=== PATIENT | female | born 1985 | race Two or more races ===

== ENCOUNTER 2017-12-03 08:45 | Emergency (ER) | payer SELFPAY ==
[~2017-12-03] VITALS: Ht 154.9 cm; Wt 52.2 kg
[2017-12-03 10:09] LABS: Basophils # (auto) 0.1 uL; Basophils % (auto) 0.6 % (0.0-2.0); Eosinophils # (auto) 0.1 uL; Eosinophils % (auto) 0.6 % (0.0-7.0); Hematocrit 40.6 % (36.0-46.0); Hemoglobin 13.6 g/dL (12.2-16.2); Lymphocytes # (auto) 1.9 uL; Lymphocytes % (auto) 17.7 % (10.0-50.0); Mean Corpuscular Hemoglobin 28.5 pg (28.0-32.0); Mean Corpuscular Hgb Conc. 33.4 g/dL (32.0-36.0); Mean Corpuscular Volume 85.1 fL (80.0-100.0); Monocytes # (auto) 0.6 uL; Monocytes % (auto) 5.5 % (0.0-12.0); Neutrophils # (auto) 8.2 uL; Neutrophils % (auto) 75.6 % (37.0-80.0); Nucleated Red Blood Cells % 0.1 %; Platelet Count (auto) 290 10^3/uL (140-450); Red Blood Cells 4.77 10^6/uL (4.0-5.20); Red Cell Distribution Width 14.3 % (11.8-14.3); White Blood Cell 10.8 10^3/uL (4.4-10.8)
[2017-12-03 10:15] LABS: Urine Bacteria FEW /hpf (None Seen); Urine Blood Negative /uL (Negative); Urine Mucus FEW (None Seen); Urine Specific Gravity 1.009 (1.001-1.035); Urine WBC 1 /hpf (0 - 5)
[2017-12-03 10:35] LABS: Albumin 3.6 g/dL (3.4-5.0); BUN/Creatinine Ratio 18.2; Bilirubin, Total 0.6 mg/dL (0.2-1.0); Calcium 8.5 mg/dL (8.5-10.1); Potassium 3.6 mmol/L (3.5-5.1); Total Protein 7.3 g/dL (6.4-8.2)
[2017-12-03 11:46] VITALS: BP 103/63
== END 2017-12-03 12:46 | disposition home or self-care (01) ==
LOC: EDSEX 08:45 → ER 08:45
DX: O21.9 Vomiting of pregnancy, unspecified (principal); R10.9 Unspecified abdominal pain; Z3A.01 Less than 8 weeks gestation of pregnancy
CPT/HCPCS: 36415; 80053; 81001; 84702; 85025

== ENCOUNTER 2017-12-10 07:36 | Emergency (ER) | payer MEDICAID, OTHER ==
[~2017-12-10] VITALS: Ht 154.9 cm; Wt 54.4 kg
[2017-12-10 07:40] VITALS: BP 113/72
[2017-12-10 08:33] LABS: Urine WBC None Seen /hpf (0 - 5)
[2017-12-10 08:39] LABS: Basophils # (auto) 0.1 uL; Basophils % (auto) 0.6 % (0.0-2.0); Eosinophils # (auto) 0 uL; Eosinophils % (auto) 0.3 % (0.0-7.0); Hematocrit 41.5 % (36.0-46.0); Hemoglobin 13.8 g/dL (12.2-16.2); Lymphocytes # (auto) 2.2 uL; Lymphocytes % (auto) 19.3 % (10.0-50.0); Mean Corpuscular Hemoglobin 28.2 pg (28.0-32.0); Mean Corpuscular Hgb Conc. 33.2 g/dL (32.0-36.0); Mean Corpuscular Volume 84.9 fL (80.0-100.0); Monocytes # (auto) 0.6 uL; Monocytes % (auto) 5.5 % (0.0-12.0); Neutrophils # (auto) 8.6 uL; Neutrophils % (auto) 74.3 % (37.0-80.0); Nucleated Red Blood Cells % 0.1 %; Platelet Count (auto) 295 10^3/uL (140-450); Red Blood Cells 4.89 10^6/uL (4.0-5.20); Red Cell Distribution Width 14.2 % (11.8-14.3); White Blood Cell 11.5 10^3/uL (4.4-10.8)
[2017-12-10 08:53] LABS: Urine Amorphous Crystal FEW /hpf (None Seen); Urine Bacteria NONE SEEN /hpf (None Seen); Urine Blood Negative /uL (Negative); Urine Mucus FEW (None Seen); Urine Specific Gravity 1.015 (1.001-1.035)
[2017-12-10 09:07] LABS: Albumin 3.5 g/dL (3.4-5.0); BUN/Creatinine Ratio 15.6; Bilirubin, Total 0.4 mg/dL (0.2-1.0); Calcium 8.9 mg/dL (8.5-10.1); Potassium 3.8 mmol/L (3.5-5.1); Total Protein 7.3 g/dL (6.4-8.2)
== END 2017-12-10 10:35 | disposition home or self-care (01) ==
LOC: ER 07:36
DX: O21.9 Vomiting of pregnancy, unspecified (principal); Z76.0 Encounter for issue of repeat prescription; Z3A.01 Less than 8 weeks gestation of pregnancy
CPT/HCPCS: 36415; 80053; 81001; 84702; 85025

== ENCOUNTER 2018-07-14 09:05 | Observation (INO) | payer MEDICAID, OTHER | END 2018-07-14 10:40 | disposition home or self-care (01) | DRG 781 | LOC: LDRP 09:05 | PROVIDERS: ADMIT Obstetrics & Gynecology; ATTEND Obstetrics & Gynecology | DX: O26.893 Other specified pregnancy related conditions, third trimester (principal); R10.9 Unspecified abdominal pain; O99.89 Other specified diseases and conditions complicating pregnancy, childbirth and the puerperium; M54.9 Dorsalgia, unspecified; Z3A.37 37 weeks gestation of pregnancy | CPT/HCPCS: 59025; 81002; G0378 ==

== ENCOUNTER 2018-07-21 17:30 | Observation (INO) | payer OTHER | END 2018-07-21 19:00 | disposition home or self-care (01) | DRG 833 | LOC: LDRP 17:30 | PROVIDERS: ADMIT Specialist; ATTEND Specialist | DX: O62.9 Abnormality of forces of labor, unspecified (principal); Z3A.39 39 weeks gestation of pregnancy | CPT/HCPCS: 59025; 81002; G0378 ==

== ENCOUNTER 2018-07-22 04:59 | Observation (INO) | payer OTHER ==
[~2018-07-22] VITALS: Ht 160 cm; Wt 72.6 kg
[2018-07-22] MEDS ORDERED: hydrOXYzine HCL 25 MG/ML VL IM ONE ×2 (05:45)
[2018-07-23] MEDS ORDERED: DOCU-94 PO (05:15)
[2018-07-23] MEDS ORDERED: DOXY10TA OR (05:15)
[2018-07-23] MEDS ORDERED: PREN-96 PO (05:15)
== END 2018-07-22 07:00 | disposition home or self-care (01) | DRG 833 ==
LOC: LDRP 04:59
PROVIDERS: ADMIT Specialist; ATTEND Specialist
DX: O62.9 Abnormality of forces of labor, unspecified (principal); Z3A.38 38 weeks gestation of pregnancy
CPT/HCPCS: 59025; 81002; 96372; G0378; J3410

== ENCOUNTER 2018-07-23 03:50 | Inpatient (IN) | payer OTHER ==
[~2018-07-23] VITALS: Ht 154.9 cm; Wt 69.4 kg
[2018-07-23] MEDS ORDERED: LACT. RINGERS/OXYTOCIN 20UNITS 1,000 ML IV SCH ×2 (04:11→09:20)
[2018-07-23] MEDS: LACTATED RINGER'S 1,000 ML IV SCH ×3 (04:11→23:18)
[2018-07-23] MEDS ORDERED: PHISODERM TOP SOLN 240ML BTL TOP PRN (04:15)
[2018-07-23] MEDS ORDERED: DERMOPLAST 60ML BOTTLE TOP PRN (04:15)
[2018-07-23] MEDS ORDERED: WITCH HAZEL-GLYCERIN PAD TOP PRN (04:15)
[2018-07-23] MEDS ORDERED: BUTORPHANOL TARTRATE 2 MG/1 ML VIAL IV PRN (04:15)
[2018-07-23] MEDS ORDERED: LIDOCAINE 2% (LOCAL ANESTH.) PF 5ml SDV ID PRN (04:15)
[2018-07-23] MEDS ORDERED: METHYLERGONOVINE MALEATE 0.2 MG/ML AMP IM PRN (04:15)
[2018-07-23] MEDS ORDERED: DOCU-94 PO (05:15)
[2018-07-23] MEDS ORDERED: PREN-96 PO (05:15)
[2018-07-23] MEDS ORDERED: DOXY10TA OR (05:15)
[2018-07-23 05:17] LABS: Basophils # (auto) 0 uL; Basophils % (auto) 0.3 % (0.0-2.0); Eosinophils # (auto) 0 uL; Eosinophils % (auto) 0.1 % (0.0-7.0); Hematocrit 43.1 % (36.0-46.0); Hemoglobin 14.7 g/dL (12.2-16.2); Lymphocytes # (auto) 1.9 uL; Mean Corpuscular Hemoglobin 29.2 pg (28.0-32.0); Mean Corpuscular Hgb Conc. 34.2 g/dL (32.0-36.0); Mean Corpuscular Volume 85.3 fL (80.0-100.0); Monocytes # (auto) 0.5 uL; Monocytes % (auto) 3.3 % (0.0-12.0); Neutrophils # (auto) 13.5 uL; Neutrophils % (auto) 84.3 % (37.0-80.0); Nucleated Red Blood Cells % 0.2 %; Platelet Count (auto) 308 10^3/uL (140-450); Red Blood Cells 5.06 10^6/uL (4.0-5.20)
[2018-07-23 05:23] LABS: INR 0.86 (0.9-1.15); Partial Thromboplastin Time 30.3 sec (23.78-33.04); Prothrombin Time 9.3 sec (9.27-12.13)
[2018-07-23 05:30] LABS: Albumin 2.6 g/dL (3.4-5.0); Calcium 8.2 mg/dL (8.5-10.1); Potassium 3.7 mmol/L (3.5-5.1)
[2018-07-23 05:33] LABS: Bilirubin, Total 0.5 mg/dL (0.2-1.0); Total Protein 7.2 g/dL (6.4-8.2)
[2018-07-23] MEDS ORDERED: ePHEDrine SULFATE 50 MG/ML AMP IV ONE ×2 (07:00→08:45)
[2018-07-23] MEDS ORDERED: fentaNYL W ROPIVACAINE 150 ML EPI SCH ×2 (07:00→08:45)
[2018-07-23] MEDS ORDERED: LIDOCAINE HCL 2 %PF INJ 10ML AMP IJ ONE (07:00)
[2018-07-23] MEDS ORDERED: NALOXONE HCL 0.4 MG/ML VIAL IV ONE ×2 (07:00→08:45)
[2018-07-23] MEDS ORDERED: fentaNYL CITRATE 100 MCG/2 ML VL IV ONE (07:00)
[2018-07-23] MEDS ORDERED: SODIUM CHLORIDE 0.9% 500 ML IV PRN (08:45)
[2018-07-23 08:47] LABS: Alcohol, Urine < 3.0 mg/dL (0-5); Amphetamine Screen, Urine NEGATIVE (NEGATIVE); Barbiturate Scree,Urine NEGATIVE (NEGATIVE); Benzodiazephine Screen, Urine NEGATIVE (NEGATIVE); Cannabinoid Screen, Urine NEGATIVE (NEGATIVE); Cocaine Screen, Urine NEGATIVE (NEGATIVE); Opiate Scree,Urine NEGATIVE (NEGATIVE); Phencyclidine Screen, Urine NEGATIVE (NEGATIVE)
[2018-07-23] MEDS ORDERED: TERBUTALINE SULFATE 1 MG/ML 1ML VIAL SC ONE (09:30)
[2018-07-23] MEDS ORDERED: LACT. RINGERS/OXYTOCIN 20UNITS 500 ML IV ONE (13:39)
[2018-07-23] MEDS ORDERED: ACETAMINOPHEN 325 MG TAB PO PRN (13:45)
[2018-07-23 14:30] VITALS: BP 114/75
[2018-07-23] MEDS: ceFAZolin 1GM/50ML 50 ML IV SCH ×3 (14:35→22:07)
[2018-07-23 16:43] LABS: Urine Bacteria NONE SEEN /hpf (None Seen); Urine Blood Negative /uL (Negative); Urine Specific Gravity 1.006 (1.001-1.035); Urine WBC <1 /hpf (0 - 5)
[2018-07-23 19:00] VITALS: BP 106/63
[2018-07-23] MEDS: IBUPROFEN 600 MG TAB PO PRN (22:07)
[2018-07-23 22:57] VITALS: BP 102/57
[2018-07-24] MEDS: IBUPROFEN 600 MG TAB PO PRN ×2 (02:27→10:12)
[2018-07-24 02:51] VITALS: BP 95/51
[2018-07-24] MEDS: LACTATED RINGER'S 1,000 ML IV SCH (04:46)
[2018-07-24] MEDS: ceFAZolin 1GM/50ML 50 ML IV SCH (05:06)
[2018-07-24 06:46] VITALS: BP 106/68
[2018-07-24 07:06] LABS: Rubella Antibodies, IgG <0.90 index (Immune >0.99)
[2018-07-24] MEDS ORDERED: DOCUSATE CALCIUM 240 MG CAP PO SCH (10:00)
[2018-07-24 11:20] VITALS: BP 97/53
[2018-07-24] MEDS ORDERED: INFLUENZA QUAD 2018-2019 0.5 ML SYRG IM ONE (12:00)
[2018-07-24] MEDS ORDERED: TETANUS-DIPTH-ACEL PERTUSSIS 0.5ML SYRG IM ONE (12:00)
[2018-07-24 15:20] VITALS: BP 101/65
== END 2018-07-24 16:00 | disposition home or self-care (01) | DRG 807 ==
LOC: LDRP 03:50 → OBSVTOIN 04:10
PROVIDERS: ADMIT Specialist; ATTEND Specialist
PROC: 10E0XZZ Delivery of Products of Conception, External Approach (ICD-10-PCS; principal; 2018-07-23)
PROC: 10907ZC Drainage of Amniotic Fluid, Therapeutic from Products of Conception, Via Natural or Artificial Opening (ICD-10-PCS; 2018-07-23)
PROC: 0HQ9XZZ Repair Perineum Skin, External Approach (ICD-10-PCS; 2018-07-23)
PROC: 3E0R3BZ Introduction of Anesthetic Agent into Spinal Canal, Percutaneous Approach (ICD-10-PCS; 2018-07-23)
PROC: 00HU33Z Insertion of Infusion Device into Spinal Canal, Percutaneous Approach (ICD-10-PCS; 2018-07-23)
PROC: 0W8NXZZ Division of Female Perineum, External Approach (ICD-10-PCS; 2018-07-23)
DX: O99.62 Diseases of the digestive system complicating childbirth (principal); Z37.0 Single live birth; K21.9 Gastro-esophageal reflux disease without esophagitis; O70.9 Perineal laceration during delivery, unspecified; Z3A.39 39 weeks gestation of pregnancy
CPT/HCPCS: 36415; 51702; 59025; 59409; 62282; 80053; 80307; 81001; 85025; 85610; 85730; 86762; 86850; 86900; 86901; 90472; 90674; 90715; 94760; 96361; 96365; 96366; 96372; 96374; A6257; G0378; J0690; J2001; J2590; J3010